=== PATIENT | female | born 1970 | race Two or more races ===

== ENCOUNTER 2018-07-08 16:06 | Inpatient (IN) | payer OTHER ==
[~2018-07-08] VITALS: Ht 157.5 cm; Wt 47.6 kg
[2018-07-08] MEDS ORDERED: SYNTHROID175 MCG PO (16:55)
[2018-07-12] MEDS ORDERED: PERCOCET 5-3251 EACH PO (11:20)
[2018-07-12] MEDS ORDERED: PEPCID40 MG PO (11:21)
[2018-07-12] MEDS ORDERED: DICLOFENAC POTA50 MG PO (11:21)
[2018-07-12] MEDS ORDERED: TANDEM PLUS CA1 EACH PO (11:21)
[2018-07-12] MEDS ORDERED: COLACE100 MG PO (11:22)
== END 2018-07-12 12:04 | DRG 743 ==
LOC: O/R 07-10 05:45 → OB/GYN 07-10 05:45 → SURH 07-10 12:00 → OB/GYN 07-10 15:37 → SURH 07-10 16:05 → OB/GYN 07-12 12:04
PROVIDERS: ADMIT Obstetrics & Gynecology
PROC: 0UT70ZZ Resection of Bilateral Fallopian Tubes, Open Approach (ICD-10-PCS; 2018-07-10)
PROC: 0UT90ZZ Resection of Uterus, Open Approach (ICD-10-PCS; principal; 2018-07-10 12:00)
DX: D25.1 Intramural leiomyoma of uterus (principal); N80.0 Endometriosis of uterus; E03.8 Other specified hypothyroidism

== ENCOUNTER 2021-06-15 09:08 | Outpatient (CLI) | payer OTHER ==
[~2021-06-15 09:08] MED LIST: COLACE100 MG PO; DICLOFENAC POTA50 MG PO; PEPCID40 MG PO; PERCOCET 5-3251 EACH PO; SYNTHROID175 MCG PO; TANDEM PLUS CA1 EACH PO
== END 2021-06-15 09:10 | disposition home or self-care (01) ==
LOC: SONOGRAMA 09:08
PROVIDERS: ATTEND Pathology Anatomic Pathology & Clinical Pathology
DX: E03.8 Other specified hypothyroidism (principal)